=== PATIENT | male | born 1965 | race Caucasian/White ===

== ENCOUNTER 2023-07-04 08:12 | Emergency (ER) | payer MEDICAID ==
[~2023-07-04] VITALS: Ht 172.7 cm; Wt 102.5 kg
[2023-07-04] MEDS ORDERED: IV NS 0.9% 1,000 ML BAG IV ONE (08:30)
[2023-07-04 08:47] LABS: BASOPHILS % (AUTO) 0.4 % (0.0-2.0); EOSINOPHILS % (AUTO) 0.1 % (0.0-6.0); HEMATOCRIT 42 % (39-51); HEMOGLOBIN 12.8 g/dL (13.5-17.5); LYMPHOCYTES # (AUTO) 1.2 K/uL (0.8-4.8); LYMPHOCYTES % (AUTO) 16.7 % (20.0-44.0); MEAN CORPUSCULAR HEMOGLOBIN 25 PG (26.0-33.0); MEAN CORPUSCULAR HGB CONC 30 g/dl (31.0-36.0); MEAN CORPUSCULAR VOLUME 82 fL (80-96); MONOCYTES # (AUTO) 0.4 K/uL (0.1-1.30); NEUTROPHILS # (AUTO) 5.7 K/uL (1.8-8.9); NEUTROPHILS % (AUTO) 76.8 % (43.0-81.0); PLATELET COUNT (AUTO) 288 K/uL (150-450); RED BLOOD CELL COUNT(AUTO) 5.13 MIL/uL (4.5-6.0); RED CELL DISTRIBUTION WIDTH 25.1 % (11.5-15.0); WHITE BLOOD COUNT (AUTO) 7.4 K/uL (4.3-11.0)
[2023-07-04 09:28] LABS: CALCIUM, SERUM 8.5 mg/dL (8.5-10.1); CREATININE 0.5 mg/dL (0.6-1.3)
[2023-07-04 09:33] LABS: ALBUMIN 3.8 g/dL (3.4-5.0); BILIRUBIN,DIRECT 0.1 mg/dL (0.0-0.2); BILIRUBIN,TOTAL 0.3 mg/dL (0.2-1.0)
[2023-07-04] MEDS ORDERED: IV NS 0.9% 1,000 ML IV ONE (15:00)
[2023-07-04] MEDS ORDERED: LORAZEPAM INJ 2 MG/ML VIAL IV ONE ×2 (15:00→19:00)
[2023-07-04] MEDS ORDERED: CHLORDIAZEPOXIDE HCL 25 MG CAPSULE PO ONE (15:00)
[2023-07-04] MEDS ORDERED: CHLORDIAZEPOXIDE HCL 25 MG CAPSULE ONE (15:47)
[2023-07-04] MEDS ORDERED: LORAZEPAM INJ 2 MG/ML VIAL ONE ×2 (15:48→18:44)
[2023-07-04 21:02] VITALS: BP 130/89; TEMP 98.9; O2SAT 98
== END 2023-07-04 21:02 | disposition home or self-care (01) ==
LOC: ER 08:15
DX: F10.139 Alcohol abuse with withdrawal, unspecified (principal); R51.9 Headache, unspecified; M54.2 Cervicalgia; Z60.2 Problems related to living alone; Y90.8 Blood alcohol level of 240 mg/100 ml or more
CPT/HCPCS: 99285; 96374; 96361; 71045; 72170; 96376; 72125; 70450; 85025; 80048; 80076; 36415; 82962; 80320; J2060 ×2; J7030 ×2; G0480